=== PATIENT | male | born 2000 | race Two or more races ===

== ENCOUNTER 2018-12-01 11:32 | Emergency (ER) | payer BC, OTHER ==
[2018-12-01] MEDS ORDERED: OXYCODONE-ACETAMINOPHEN 5-325 MG TABLET PO ONE (12:56)
--- NOTE | 2018-12-01 13:01 | ER Document Report ---
ED Medical Screen (RME) - General Chief Complaint: Urinary Problem Stated Complaint: URINARY ISSUE Time Seen by Provider: 12/01/18 12:28 Notes: 17-year-old male who is uncircumcised presents to the emergency department with chief complaint of paraphimosis since yesterday evening. He states that he was receiving oral sex from a female and it was the first time that his foreskin has ever been retracted because previously he had always used a condom. Patient is able to urinate. The glans penis has redness and irritation and when the foreskin was peeled back there was copious foul-smelling white discharge. I made one attempt at manual reduction but was unsuccessful as the foreskin is very tight. There is no evidence at this time of necrosis and the glans penis is still pink and shows no evidence of purple color. I have ordered a dose of Percocet to be given prior to another attempt at a manual reduction in a more controlled environment. I have greeted and performed a rapid initial assessment of this patient. A comprehensive ED assessment and evaluation of the patient, analysis of test results and completion of medical decision making process will be conducted by an additional ED providers. TRAVEL OUTSIDE OF THE [place] IN LAST 30 DAYS: No - Related Data Allergies/Adverse Reactions: Penicillins Allergy (Verified 12/01/18 11:32) Past Medical History - Social History Chew tobacco use (# tins/day): No Frequency of alcohol use: Rare Drug Abuse: None Renal/ Medical History: Denies: Hx Peritoneal Dialysis Physical Exam - Vital signs Vitals: Temp Pulse Resp BP Pulse Ox 98.4 F 83 16 122/73 96 12/01/18 11:35 12/01/18 11:35 12/01/18 11:35 12/01/18 11:35 12/01/18 11:35 - Genitourinary Inspection: Other - Paraphimosis present, when the foreskin was pulled back further there is copious amount of white foul-smelling discharge, glans penis pink with a red rash over it probably consistent with a fungal infection Scrotum: Normal Course - Vital Signs Vital signs: Temp Pulse Resp BP Pulse Ox 98.4 F 83 16 122/73 96 12/01/18 11:35 12/01/18 11:35 12/01/18 11:35 12/01/18 11:35 12/01/18 11:35
--- NOTE | 2018-12-01 14:39 | ER Document Report ---
HPI - HPI Patient complains to provider of: pt has irreducible paraphimosis that needs emergent dorsal slit. 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 He states the area has now become painful over the glans of his penis. He denies any discharge, history of this before, or UTI symptoms. No pain or swelling testicles. He is uncircumcised. No fever. No vomiting. he hasn't tried himself to reduce the foreskin. he is still able to urinate. no concerns for stds. No other associated symptoms at this time. Associated Symptoms: None Similar symptoms previously: No Recently seen / treated by doctor: No - ROS Systems Reviewed and Negative: Yes All other systems reviewed and negative - to include 10, unless mentioned in the hpi - DERM Skin Color: Normal Past Medical History - General Information source: Patient - Social History Smoking Status: Former Smoker Chew tobacco use (# tins/day): No Frequency of alcohol use: Rare Drug Abuse: None Family History: Reviewed & Not Pertinent Patient has suicidal ideation: No Patient has homicidal ideation: No - Medical History Medical History: Negative Renal/ Medical History: Denies: Hx Peritoneal Dialysis Vertical Provider Document - CONSTITUTIONAL Notes: >>>> PHYSICAL_EXAM: GENERAL_APPEARANCE: well_nourished, alert, cooperative, no_acute_distress, mild obvious_discomfort. Pleasant, thin young male, smiling, speaking in full sentences, easily sitting up, in no sign of resp distress, nontoxic, no one is with him; however, his friend is with him in the lobby and driving. VITALS: reviewed, see vital signs table. HEAD: normocephalic. atraumatic. no levine signs. no raccoon eyes. EYES: PERRL, EOMI, (-)scleral icterus. NOSE: no_nasal_discharge. MOUTH: (-)decreased moisture. THROAT: no_tonsilar_inflammation/hypertrophy/exudate. no lymphadenopathy NECK: supple, no_neck_tenderness, full rom. full strength. no meningeal signs. BACK: no_back_tenderness. CHEST_WALL: no_chest_tenderness. LUNGS: no_wheezing, (-)accessory muscle use, good air exchange bilateral. HEART: normal_rate, normal_rhythm,, ABDOMEN: normal_BS, soft, abdomen-diffuse non-tender, (-)guarding, (-)rebound, no distension or peritoneal signs. neg murphys. neg mcburneys. neg heel strike. neg obturator. neg psoas. neg rovsign. no cva tenderness GENITALS: no_testicular_tenderness/swelling, no_urethral_discharge, no_inguinal_hernia, no_ulcers_or_lesions on the genitals, no_lacerations on the genitals, there is a paraphimosis. the glans is still pink but appears inflamed. no ecchymosis. penis and testicles otherwise wnl. exam chaperoned by ed nurse. pt consented to exam. exam without incident. RECTAL: deferred EXTREMITIES: strength 5/5 in all_extremities, good pulses in all_extremities, no_edema, no_swelling\tenderness. full rom. normal gait. brisk cap refill. good hand manager primary. SKIN: warm, dry, good_color, no _rash. no grossly visible overlying skin changes to suggest trauma unless otherwise noted. NEURO: motor_intact, sensory_intact. cranial nerves 2-12 intact, cerebellar fxn intact MENTAL_STATUS: normal_affect, speech_clear, oriented_X_3, responds_appropriately to questions. - INFECTION CONTROL TRAVEL OUTSIDE OF THE [place] IN LAST 30 DAYS: No Course - Re-evaluation Re-evalutation: 12/01/18 15:47 Patient here for irreducible paraphimosis likely needing a dorsal slit. Was not able to be reduced here. The glans is still pink in color. There is no sign of necrosis currently. Dr. Juan did speak with on-call urology at [facility], Dr. Abelardo Bautista, who agreed to accept the patient in ED to ED transfer. End-tidal form was filled out. Dr. Spann advised the patient stable for transfer via private vehicle. I did stress the importance to the patient that he go directly from here to the [facility] ER without fail and without stopping. he states his friend is with him here and drove him here and will drive him directly there without stopping as soon as he leaves here without fail. i did stress the importance of him going there and advised him if he didn't go to their ER from here he was at risk for losing his penis, sexual dysfunction, erectile dysfunction, and worse case scenario being . pt verbalized understanding to this and was in agreement to going to the [facility] ED from here directly via private vehicle because this was the fast route for him due to no ambulance being emergently available to transfer him there any time soon. I then called and spoke to the ED Physician at [facility], Dr Crooks, and informed him about the pt. Dr. Cerda-Crime Analyst also spoke with the ED physician Dr. Crooks to insure full understanding and Dr. Juan, my attending, also spoke with Dr Bautista the accepting physician who requested the ED to ED transfer. vss. emtala form filled out. pt given dc instructions and pts medical records faxed to [facility] ED for reference., On reexam, pt remained stable. nontoxic. well appearing. pain controlled. made npo. case discussed with ER Attending, Dr. 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 Dr. Abelardo Bautista is the accepting urologist(physician), i also spoke with dr crooks, the ed physician, to let him know the pt was on his way there and of the above stated plan. Dr. Cerda and Dr Juan were also involved in the conversations with these physicians. Documentation achieved through voice recording which my lead to some occasional accidental typographical errors. Extensive efforts have been made to proof read documentation to make sure these are the least as possible. 12/01/18 15:49 - Vital Signs Vital signs: Temp Pulse Resp BP Pulse Ox 98.4 F 83 16 122/73 96 12/01/18 11:35 12/01/18 11:35 12/01/18 11:35 12/01/18 11:35 12/01/18 11:35 Discharge - Discharge Clinical Impression: Paraphimosis Condition: Critical Disposition: [facility] Admitting Provider: Dr. Abelardo Bautista-Urologist contract administration coordinator Additional Instructions: Go directly to the [facility] when you leave here to their emergency department to meet with Dr. Abelardo Bautista, the urologist on-call who will see you for your irreducible paraphimosis. The ER at [facility], Dr. Pierson, has been informed you will be coming along with Dr. Bautista.
[2018-12-01 15:43] VITALS: BP 129/70
== END 2018-12-01 15:51 ==
LOC: ER 11:32
DX: N47.2 Paraphimosis (principal); N48.89 Other specified disorders of penis; Z87.891 Personal history of nicotine dependence
CPT/HCPCS: 87070; 87075; 87077; 87186; 87205; 99284